=== PATIENT | female | born 2000 | race Two or more races ===

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

== ENCOUNTER 2020-04-19 16:26 | Emergency (ER) | payer MEDICAID, OTHER ==
[2020-04-19] MEDS ORDERED: fentaNYL 100 MCG/2 ML SDV ONE (16:52)
[2020-04-19] MEDS ORDERED: fentaNYL 100 MCG/2 ML SDV IVPUSH ONE ×2 (16:54→18:05)
[2020-04-19] MEDS ORDERED: Sodium Chloride 0.9% 1,000 ML IV ONE ×2 (16:54→17:15)
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
[2020-04-19] MEDS ORDERED: Lactated Ringers 2,000 ML IV SCH (18:30)
[2020-04-19 18:31] VITALS: PULSE 95
[2020-04-19 19:15] VITALS: BP 105/69
--- NOTE | 2020-04-20 07:46 | CR ---
Right tibia and fibula: AP and lateral views of the right tibia and fibula were obtained. Comparison: No previous study. No acute fracture or other bony abnormality is appreciated. No soft tissue air is seen. Impression: 1. No abnormality is appreciated on 2 view right tibia and fibula exam. Diagnostic code #1
--- NOTE | 2020-04-20 07:46 | CR ---
Right foot: 3 views of the right foot were obtained. Comparison: No prior foot exam is available. Joint spaces are preserved. No acute fracture, dislocation or other bony abnormality is seen. No focal areas of osteopenia is seen. Impression: 1. No acute bony abnormality is appreciated. 2. Overlying bandages noted. Diagnostic code #2
--- NOTE | 2020-04-20 07:46 | CR ---
Left tibia and fibula: AP and lateral views of the left tibia and fibula were obtained. Comparison: No previous study. Joint spaces are maintained. No acute fracture or other bony abnormality is appreciated. No soft tissue air is seen. Impression: 1. Nothing acute is appreciated on 2 view left tibia and fibula exam. Diagnostic code #1
--- NOTE | 2020-04-20 07:46 | CR ---
Left foot: 3 views left foot were obtained. Overlying bandage is noted. Bony structures show no acute fracture, dislocation or other bony abnormality. No focal osteopenia is present. Impression: 1. Overlying bandage. 2. No acute bony abnormality is appreciated. Diagnostic code #2
--- NOTE | 2020-04-20 08:56 | CR ---
Left hand: 2 views of the left hand were obtained. Comparison: No prior left hand exam is available. Joint spaces are preserved. No focal erosive change is seen. No acute fracture or other bony abnormality is appreciated. Impression: 1. Nothing acute is appreciated on 2 view left hand exam. Diagnostic code #1 MTDD
--- NOTE | 2020-04-20 09:04 | CR ---
Right forearm: 2 views of the right forearm were obtained. Comparison: No previous forearm study is available. No discrete fracture or other bony abnormality is appreciated. No focal erosions are seen. No soft tissue air is seen. Impression: 1. Nothing acute is seen on 2 view right forearm study. Diagnostic code #1 MTDD
--- NOTE | 2020-04-20 09:05 | CR ---
Right hand: 2 views of the right hand were obtained. Comparison: No previous right hand exam. Joint spaces are preserved. No focal erosive change is seen. No acute fracture or other bony abnormality is appreciated. No discrete soft tissue air is seen. Impression: 1. Nothing acute is appreciated on 2 view right hand exam. Diagnostic code #1 MTDD
--- NOTE | 2020-04-20 09:06 | CR ---
Left forearm: 2 views of the left forearm were obtained. Comparison: No previous forearm study is available. No discrete fracture or other bony abnormality is appreciated. No soft tissue air is appreciated. Impression: 1. Nothing acute is seen on 2 view left forearm study. Diagnostic code #1 MTDD
== END 2020-04-19 19:45 ==
LOC: JD.ED 16:26
DX: T33.522A Superficial frostbite of left hand, initial encounter (principal); T33.521A Superficial frostbite of right hand, initial encounter; T33.822A Superficial frostbite of left foot, initial encounter; T33.821A Superficial frostbite of right foot, initial encounter; Z88.8 Allergy status to other drugs, medicaments and biological substances; Z72.0 Tobacco use; X31.XXXA Exposure to excessive natural cold, initial encounter; Z20.822 Contact with and (suspected) exposure to COVID-19
CPT/HCPCS: 36415; 73090; 73120; 73590; 73620; 80053; 80179; 80306; 81003; 81025; 82150; 82550; 83605; 84484; 84702; 85025; 85610; 87635; 93005; 96374; 96376; 99285; J3010; J7030; J7120; 93010; U0002

== ENCOUNTER 2020-06-29 18:46 | Emergency (ER) | payer OTHER ==
[2020-06-29 19:14] VITALS: BP 120/77; PULSE 107
[2020-06-29] MEDS ORDERED: Sodium Chloride 0.9% 10 ML Syringe FLUSH PRN (19:37)
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
[2020-06-29] MEDS ORDERED: Gabapentin 300 MG Cap PO ONE (21:20)
== END 2020-06-29 21:40 | disposition home or self-care (01) ==
LOC: JD.ED 18:46
DX: O9A.212 Injury, poisoning and certain other consequences of external causes complicating pregnancy, second trimester (principal); T33.822A Superficial frostbite of left foot, initial encounter; O21.9 Vomiting of pregnancy, unspecified; Z72.0 Tobacco use; Z91.048 Other nonmedicinal substance allergy status
CPT/HCPCS: 36415; 80053; 83605; 85025; 86140; 87040; 99283; A9270; 99284